=== PATIENT | female | born 1970 | race Caucasian/White ===

== ENCOUNTER 2018-07-10 14:14 | Emergency (ER) | payer OTHER ==
[2018-07-10 15:19] LABS: Anisocytosis SLIGHT = 6-15 cells (100X) (0-5/hpf); Band 3 % (5-11); Elliptocytes SLIGHT = 2-5 cells (100X) (0-1/hpf); Eosinophils 3 % (0-10); Hemoglobin 9.5 g/dL (12.0-16.0); Hypochromia MODERATE=16-30 cells (100X) (0-5/hpf); Lymphocytes 22 % (21-51); MDiff Complete? YES; Mean Corpuscular HGB CONC 29.3 g/dL (32.0-36.0); Mean Corpuscular Hemoglobin 21.1 pg (27.0-31.0); Mean Corpuscular Volume 72.1 fL (78.0-98.0); Mean Platelet Volume 6.2 fL (7.4-10.4); Microcytosis SLIGHT = 6-15 cells (100X) (0-5/hpf); Monocytes 9 % (0-10); Neutrophil 58 % (42-75); Platelet Count 447 thou/uL (130-400); Platelet Morphology Comment Appears Increased; RBC Distribution Width 18.6 % (11.5-14.5); Reactive Lymphocytes 3 % (0-10); Stomatocytes SLIGHT = 2-5 cells (100X) (0-1/hpf); Target Cells SLIGHT = 2-5 cells (100X) (0-1/hpf); White Blood Cell (WBC) Count 12.9 thou/uL (4.8-10.8)
== END 2018-07-10 15:52 | disposition home or self-care (01) ==
LOC: SCSER 14:14
DX: D50.9 Iron deficiency anemia, unspecified (principal); K21.9 Gastro-esophageal reflux disease without esophagitis; E78.5 Hyperlipidemia, unspecified; J45.909 Unspecified asthma, uncomplicated; F41.9 Anxiety disorder, unspecified
CPT/HCPCS: 36415; 85025; 99283

== ENCOUNTER 2019-08-29 08:57 | Outpatient (CLI) | payer OTHER ==
--- NOTE | 2019-08-29 09:34 | MRI ---
MRI Cervical spine without contrast: HISTORY: Radiculopathy, cervical region. Patient states left-sided neck pain for 2 years COMPARISON: None FINDINGS: The craniocervical junction is unremarkable. No significant cord signal abnormality. Paravertebral soft tissues have a normal appearance and normal signal intensity. The bone marrow demonstrates diffuse diminished signal intensity. This is an overall nonspecific find ing and could be related to conversion to red marrow. Anemia of chronic disease is a possibility. An infiltrative marrow process also could not be excluded. C1-2:No significant stenosis. C2-3: There is no disc bulge or disc herniation. The central spinal canal and neural foramina are pat ent. C3-4: There is no disc bulge or disc herniation. The central spinal canal and neural foramina are pat ent. C4-5: Broad-based disc osteophyte complex which narrows the ventral subarachnoid space. Right neural foramen is patent with mild left-sided neural foraminal narrowing. C5-6: There is no disc bulge or disc herniation. The central spinal canal and neural foramina are pat ent. C6-7: There is no disc bulge disc herniation. The central spinal canal and neural foramina are patent . C7-T1: There is no disc bulge or disc herniation. The central spinal canal and neural foramina are pa tent. IMPRESSION: 1. Decreased bone marrow signal intensity which is overall nonspecific finding. This could be related to conversion to red marrow. Anemia of chronic disease is a possibility. An infiltrative marrow process could not be excluded. 2. Disc degenerative changes at the C4-5 level. No high-grade central canal or neural foraminal narro wing is present at any level of the cervical spine.
--- NOTE | 2019-08-29 11:50 | MRI ---
MRI LUMBAR SPINE WITHOUT CONTRAST: HISTORY: Pain. COMPARISON: None. FINDINGS: Aortic contour is nonaneurysmal. No hydronephrosis. Paraspinal musculature is normal. Abnormal decreased marrow signal throughout the lumbar spine. Signal on the T1 weighted imaging sequ ence is less than the disk space. The conus medullaris terminates near the superior end plate of L1. Levels are as follows: L1-2: Normal disks. No neural foraminal or spinal canal narrowing. L2-3: Normal disk. No neural foraminal or spinal canal narrowing. L3-4: Normal disk. No neural foraminal or spinal canal narrowing. L4-5: Mild disk desiccation. Minimal height loss. Minimal disk bulge. No neural foraminal or spin al canal narrowing. L5-S1: Normal disk. No neural foraminal or spinal canal narrowing. There is effusion of the enlarged L5 transverse process of the sacrum. IMPRESSION: 1. No significant neural foraminal narrowing or spinal canal narrowing throughout the lumbar spine. 2. 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 3. Decreased T1 and T2 marrow signal is abnormal throughout the lumbar spine. Differential is broad and includes benign entities such as myelodysplastic syndrome, polycythemia, myelofibrosis, along wi th reconversion of red marrow. Malignant entities are also possible including leukemia, myeloma, and lymphoproliferative disorder. POS: HOME
== END 2019-08-29 08:58 | disposition home or self-care (01) ==
LOC: TBSIIMAG 08:57
PROVIDERS: ATTEND Specialist
DX: M51.16 Intervertebral disc disorders with radiculopathy, lumbar region (principal); R93.7 Abnormal findings on diagnostic imaging of other parts of musculoskeletal system; M50.121 Cervical disc disorder at C4-C5 level with radiculopathy; Z98.1 Arthrodesis status
CPT/HCPCS: 72141; 72148

== ENCOUNTER 2019-09-05 16:00 | Outpatient (CLI) | payer OTHER | END 2019-09-05 16:01 | disposition home or self-care (01) | LOC: SLEEPLAB 16:00 | PROVIDERS: ATTEND Family Medicine | DX: R06.83 Snoring (principal) | CPT/HCPCS: 95806 ==